=== PATIENT | male | born 1955 | race Caucasian/White ===

== ENCOUNTER → 2021-05-27 | Outpatient (CLI) | payer OTHER ==
--- NOTE | 2021-05-27 08:55 | Diagnostic Imaging Report ---
PROCEDURE: CT abdomen and pelvis without contrast. TECHNIQUE: Multiple contiguous axial images were obtained through the abdomen and pelvis without the use of intravenous contrast. Auto Exposure Controls were utilized during the CT exam to meet ALARA standards for radiation dose reduction. INDICATION: Left groin pain radiating to the mid pelvis. No prior studies are available for comparison. The lung bases are clear. Liver is unremarkable. There are small stones within the gallbladder. No biliary duct dilatation is seen. Pancreas and spleen are unremarkable. No adrenal mass is detected. Right kidney is unremarkable. Left kidney contains a punctate nonobstructing calculus in the lower pole. No ureteral calculi or hydronephrosis is identified. Aorta is calcified but nonaneurysmal. There is normal caliber of the small and large bowel loops. No obstruction is seen. There is diverticulosis of the descending and sigmoid colon but no evidence of acute diverticulitis. There is a fat-containing left inguinal hernia. No defect in the prostate is noted. Bladder is unremarkable. There is no free fluid or fluid collection identified. IMPRESSION: 1. Cholelithiasis. 2. Nonobstructing left-sided nephrolithiasis. No ureteral calculi or hydronephrosis is seen. 3. Uncomplicated diverticulosis. 4. Fat-containing left inguinal hernia. Dictated by: Dictated on workstation # [id number]
== END ==
LOC: RAD 08:15
PROVIDERS: ATTEND Nurse Practitioner
DX: Z01.89 Encounter for other specified special examinations (principal); K80.20 Calculus of gallbladder without cholecystitis without obstruction; N20.0 Calculus of kidney; K57.30 Diverticulosis of large intestine without perforation or abscess without bleeding; K40.90 Unilateral inguinal hernia, without obstruction or gangrene, not specified as recurrent
CPT/HCPCS: 74176

== ENCOUNTER 2021-07-13 11:52 | Outpatient (CLI) | payer OTHER ==
[~2021-07-13] VITALS: Ht 172.7 cm; Wt 81.8 kg
[2021-07-13] MEDS ORDERED: TR1C15 TP (12:57)
[2021-07-13] MEDS ORDERED: SILD100T PO (12:57)
[2021-07-13] MEDS ORDERED: MONT-40 PO (12:57)
[2021-07-13] MEDS ORDERED: FLUT9.9S NS (12:57)
[2021-07-13] MEDS ORDERED: GEMF600T88 PO (12:57)
[2021-07-13] MEDS ORDERED: LOSA50TA63 PO (12:57)
[2021-07-13] MEDS ORDERED: AMLO-251 PO (12:57)
[2021-07-13] MEDS ORDERED: ASPI81TA16 PO (12:57)
[2021-07-13] MEDS ORDERED: KETO120S13 TP (12:57)
[2021-07-13] MEDS ORDERED: FENO145T26 PO (12:57)
[2021-07-13] MEDS ORDERED: NAPR220T66 PO (12:57)
[2021-07-13] MEDS ORDERED: ROSU20TA32 PO (12:57)
[2021-07-13] MEDS ORDERED: CETI10TA49 PO (13:03)
[2021-07-13] MEDS ORDERED: MELA5CAP PO (13:03)
[2021-07-13] MEDS ORDERED: MULT-1106 PO (13:03)
[2021-07-13] MEDS ORDERED: MAGN250T35 PO (13:03)
[2021-07-13] MEDS ORDERED: MV-M1TAB20 PO (13:03)
[2021-07-13] MEDS ORDERED: ASCO500C17 PO (13:03)
[2021-07-13] MEDS ORDERED: VITA-259 PO (13:03)
[2021-07-13] MEDS ORDERED: VITA1CAP PO (13:03)
[2021-07-13] MEDS ORDERED: POTA10TA37 PO (13:03)
[2021-07-13] MEDS ORDERED: ZINC50TA51 PO (13:03)
[2021-07-14] MEDS ORDERED: HYDR-3817 PO (10:43)
== END 2021-07-13 13:05 | disposition home or self-care (01) ==
LOC: PREOP 11:52
PROVIDERS: ATTEND Surgery
DX: Z01.818 Encounter for other preprocedural examination (principal)

== ENCOUNTER 2021-07-14 10:18 | Day surgery (SDC) | payer OTHER ==
[~2021-07-14] VITALS: Ht 172.7 cm; Wt 81.8 kg
[2021-07-14] VITALS (10 sets, daily range): BP systolic 108–139; BP diastolic 73–88
[~2021-07-14 10:18] MED LIST: AMLO-251 PO; ASCO500C17 PO; ASPI81TA16 PO; CETI10TA49 PO; FENO145T26 PO; FLUT9.9S NS; GEMF600T88 PO; KETO120S13 TP; LOSA50TA63 PO; MAGN250T35 PO; MELA5CAP PO; MONT-40 PO; MULT-1106 PO; MV-M1TAB20 PO; NAPR220T66 PO; POTA10TA37 PO; ROSU20TA32 PO; SILD100T PO; TR1C15 TP; VITA-259 PO; VITA1CAP PO; ZINC50TA51 PO
[2021-07-14] MEDS ORDERED: ceFAZolin 2 GM IV Premixed 50 ML IV ONE (10:30)
--- NOTE | 2021-07-14 10:41 | Progress Note-Pre Operative ---
Pre-Operative Progress Note H&P Reviewed The H&P was reviewed, patient examined and no changes noted. Date Seen by Provider: Jul 14, 2021 Time Seen by Provider: 10:30 Date H&P Reviewed: Jul 14, 2021 Time H&P Reviewed: 10:30 Pre-Operative Diagnosis: sx left inguinal hernia and chronic calculous cholecystitis JENNIFER LEE MD Jul 14, 2021 10:41
[2021-07-14] MEDS ORDERED: HYDR-3817 PO (10:43)
--- NOTE | 2021-07-14 10:43 | Discharge Inst-Surgical ---
D/C Lap Instructions-ROSA New, Converted, or Re-Newed RX: RX on Chart Follow Up Appt in 2 weeks Activity as tolerated No driving for 24 hours No driving while on pain medications Incentive Spirometry use every 2 hours while awake Regular Diet Symptoms to Report: Fever over 101 degree F, Nausea/Vomiting Infection Signs and Symptoms to report: Increased redness, Foul odor of wound, Increased drainage Bathing instructions: May shower Operative Area Clean/Dry; Keep incision clean/dry If any problems/questions: Contact your physician or go to Emergency Room JENNIFER LEE MD Jul 14, 2021 10:43
[2021-07-14] MEDS ORDERED: ONDANSETRON 4 MG/2 ML (SDV) Z0FRAN IVP PRN ×2 (10:45→14:45)
[2021-07-14] MEDS ORDERED: morphine INJ 10 MG/ML 1ML (SYR OR VIAL) IVP PRN ×2 (10:45)
[2021-07-14] MEDS ORDERED: oxyCODONE/APAP 5/325MG (PERCOCET 5) TABLET PO PRN (10:45)
[2021-07-14] MEDS ORDERED: ACETAMINOPHEN 325 MG TABLET PO PRN (10:45)
[2021-07-14] MEDS: LACTATED RINGERS 1,000 ML IV PRN ×3 (10:50→13:54)
[2021-07-14] MEDS ORDERED: LIDOCAINE/EPI 2% 1:100,00 (XYLOCAINE) 20 ML VIAL ONE (11:12)
[2021-07-14] MEDS ORDERED: LIDOCAINE PF 2% 5 ML (XYLOCAINE) VIAL ONE (12:36)
[2021-07-14] MEDS ORDERED: ONDANSETRON 4 MG/2 ML (SDV) Z0FRAN ONE (12:36)
[2021-07-14] MEDS ORDERED: GLYCOPYRROLATE 0.2 MG/ML (ROBINUL) 2 ML VIAL ONE (12:36)
[2021-07-14] MEDS ORDERED: NEOSTIGMINE 3 MG/3 ML VIAL ONE (12:36)
[2021-07-14] MEDS ORDERED: MIDAZOLAM 2 MG/2 ML (VERSED) VIAL ONE (12:36)
[2021-07-14] MEDS ORDERED: ROCURONIUM 10 MG/ML 5 ML SYRINGE IV ONE (12:36)
[2021-07-14] MEDS ORDERED: proPOfol 200 MG/20 ML (DIPRIVAN) VIAL IV ONE (12:36)
[2021-07-14] MEDS ORDERED: fentaNYL INJ 100 MCG/2 ML AMP ONE (12:36)
[2021-07-14] MEDS ORDERED: HYDROmorphone 2 MG/ML VIAL (DILAUDID) ONE (13:36)
--- NOTE | 2021-07-14 14:16 | Progress Note-Post Operative ---
Post-Operative Progess Note Surgeon (s)/C S S Representative (s) Surgeon JENNIFER LEE MD C S S Representative: mike pantoja DRAMATIC TEACHER Pre-Operative Diagnosis sx left inguinal hernia and chronic calculous cholecystitis Post-Operative Diagnosis sx indirect and direct ing hernia Procedure & Operative Findings Date of Procedure 07/14/21 Procedure Performed/Findings laparoscopic cholecystectomy and left inguinal hernia repair with mesh. Anesthesia Type get Estimated Blood Loss Estimated blood loss (mL): minimal Specimens/Packing Specimens Removed gallbladder JENNIFER LEE MD Jul 14, 2021 14:16
[2021-07-14] MEDS ORDERED: SEVOFLURANE (ULTANE) 15 ML INHAL SOLN ONE (14:36)
[2021-07-14] MEDS ORDERED: HYDROmorphone 2 MG/ML VIAL (DILAUDID) IV ONE (14:45)
[2021-07-14] MEDS ORDERED: morphine INJ 10 MG/ML 1ML (SYR OR VIAL) IVP ONE (14:45)
[2021-07-14] MEDS ORDERED: morphine INJ 10 MG/ML 1ML (SYR OR VIAL) ONE (14:57)
--- NOTE | 2021-07-14 15:14 | Anesthesia-General Post-Op ---
General Patient Condition Mental Status/LOC: Same as Preop Cardiovascular: Satisfactory Nausea/Vomiting: Absent Respiratory: Satisfactory Pain: Controlled Complications: Absent Post Op Complications Complications None Follow Up Care/Instructions Patient Instructions None needed. Anesthesia/Patient Condition Patient Condition Patient is doing well, no complaints, stable vital signs, no apparent adverse anesthesia problems. RADHA CHUN DO Jul 14, 2021 15:14
--- NOTE | 2021-07-14 18:52 | OPERATIVE REPORT ---
DATE OF SERVICE: 07/14/2021 PREOPERATIVE DIAGNOSES: 1. Symptomatic reducible left inguinal hernia. 2. Symptomatic chronic calculous cholecystitis. POSTOPERATIVE DIAGNOSES: 1. Symptomatic reducible left indirect and direct left inguinal hernia component. 2. Multiple small gallstones. PROCEDURE: Laparoscopic cholecystectomy and left inguinal hernia repair with mesh. SURGEON: Jennifer Lee MD STYLE ADVISOR: Salo Meza APRN ANESTHESIA: General endotracheal. ESTIMATED BLOOD LOSS: Minimal. FINDINGS: Same as postoperative diagnoses. DISPOSITION: The patient tolerated the procedure well. INDICATIONS: The patient is a 65-year-old male who was referred over to us for a left inguinal hernia. He reports that he sneezed 2 months ago and then felt a sharp pain in the left inguinal region and this was followed by a palpable bulge, which was painful to palpation and a CT scan was performed, which did show a fat containing left inguinal hernia. He also reported pain in the right upper abdominal quadrant for the past several years; however, states that this has become more frequent. He also states that the feeling of abdominal bloating and fullness after eating meals. The CT scan also detected gallstones. DESCRIPTION OF PROCEDURE: The patient was brought to the operating room, laid supine on the table. After adequate IV pain and sedative medications and general endotracheal intubation, the abdomen was prepped and draped in standard surgical fashion. A 0.5% Marcaine with epinephrine was used to anesthetize overlying skin left upper abdominal quadrant and transverse skin incision made using 15 blade. An 0 silk suture was applied to the medial aspect incision for retraction and Veress needle inserted with a low opening pressure of 0 mmHg. The abdomen was then insufflated to 15 mmHg pressure. The Veress needle removed and a 5 mm XL trocar placed followed by a 5 mm 45-degree angle laparoscope visualizing the peritoneal cavity. A 4-quadrant abdominal exploration was performed. There were omental adhesions towards the gallbladder as well as a distended gallbladder, no gallbladder wall thickening. There was also a left inguinal hernia identified; however, we could not discern if this was a direct or indirect at this time. We then proceeded to place a supraumbilical 10 mm port after the skin and peritoneal lining were anesthetized using 0.5% Marcaine with epinephrine and a transverse skin incision made using 15 blade. In a similar manner, a right lateral 5 mm port was placed. The patient was then placed in reverse Trendelenburg position as well as plane right side up, left side down. The fundus of the gallbladder was retracted anteriorly and superiorly and the omental adhesions were taken down using blunt dissection as well as electrocautery on hook instrument. The hepatoduodenal ligament was then dissected using blunt dissection as well as electrocautery on hook instrument as well as a [place] dissector. The entire critical view of safety was identified including the triangle of Calot as well as the cystic duct and artery as only two structures going into the gallbladder as well as the cystic plate behind the proximal gallbladder. A timeout was then taken and cystic duct and artery were then clipped proximally and distally and cut with EndoShears and the gallbladder was then dissected off the liver bed using electrocautery on hook instrument with visualization of good hemostasis as well as no leaking ducts of Luschka. The gallbladder was removed through the 10 mm port site using an EndoCatch bag. The patient was then placed in Trendelenburg position and the peritoneal lining was then opened laterally towards the conjoined tendon and inguinal ligament using a Sonicision. We then proceeded with medial dissection until Chicho's ligament was identified. We then proceeded with inferior dissection identifying both indirect as well as a direct inguinal hernia component. These were both dissected off of the cord and its surrounding contents with blunt dissection as well as a Sonicision. Good hemostasis was observed. A medium size 3DMax polypropylene mesh was then placed in the defect and tacked to Chicho's ligament medially with absorbable tacks and to the inguinal ligament laterally. The peritoneal lining was then placed over the mesh and a few absorbable tacks placed to hold this in place with visualization of good hemostasis. The 10 mm port site fascia and peritoneum were then closed under direct visualization using a Mejia-Mary Ann device and 0 Vicryl suture. Abdomen was desufflated and remaining ports removed. All skin incisions were closed using 4-0 Monocryl running subcuticular suture. Wounds were then cleaned and covered with Dermabond. The patient tolerated the procedure well. We will start IV normal pain medication as well as a clear liquid diet. Once he is tolerating clears, has good pain control with oral pain medication and is ambulating well, we will discharge him home where he will be instructed to do no heavy lifting or exertion for the next two weeks. Job ID: [id number] DocumentID: [id number] Dictated Date: 07/14/2021 14:23:25 Mechanic'S Assistant Date: 07/14/2021 18:51:38 Dictated By: JENNIFER LEE MD
== END 2021-07-14 16:17 ==
LOC: SDC 10:18
PROVIDERS: ATTEND Surgery
DX: K40.90 Unilateral inguinal hernia, without obstruction or gangrene, not specified as recurrent (principal); K80.10 Calculus of gallbladder with chronic cholecystitis without obstruction; K66.0 Peritoneal adhesions (postprocedural) (postinfection); Z79.899 Other long term (current) drug therapy
CPT/HCPCS: 87081; 94664

== ENCOUNTER → 2022-06-16 | Outpatient (CLI) | payer OTHER ==
[~2022-06-16] MED LIST changes: +HYDR-3817 PO; +POTA-177 PO; -POTA10TA37 PO
--- NOTE | 2022-06-16 10:03 | Diagnostic Imaging Report ---
PROCEDURE: CT maxillofacial without contrast. TECHNIQUE: Multiple contiguous axial images were obtained through the facial bones without the use of intravenous contrast. Auto Exposure Controls were utilized during the CT exam to meet ALARA standards for radiation dose reduction. INDICATION: Left ear pain. COMPARISON: None. FINDINGS: The mastoid air cells on the left are clear. The left middle ear cavity is unremarkable without evidence of soft tissue mass or fluid. No osseous erosions are seen. Post surgical changes of wall down mastoidectomy are seen on the right. The ossicles on the right demonstrate osseous destruction. A small amount of soft tissue fullness is seen within the right middle ear cavity. No acute fracture is seen. Post surgical changes are seen in the mandible. The bilateral TMJ demonstrate normal alignment. Degenerative changes are present in the bilateral TMJ. The zygomatic arches and pterygoid plates are intact. Post surgical changes are seen in the paranasal sinuses. Mild mucosal thickening is seen throughout the paranasal sinuses. The globes and orbits are symmetric and unremarkable. The included intracranial contents have a normal appearance. IMPRESSION: 1. Unremarkable appearance of the left mastoid air cells and middle ear cavity. No evidence of otomastoiditis. 2. No acute facial fractures. 3. Postsurgical changes in the paranasal sinuses. Mild mucosal thickening is seen throughout the paranasal sinuses. 4. Prior wall down mastoidectomy changes on the right. Additional destruction of the ossicles is noted on the right with small amount of soft tissue fullness in the right middle ear cavity. Findings may represent sequelae of otomastoiditis or cholesteatoma. Recommend correlation with patient history. Dictated by: Dictated on workstation # [id number]
== END ==
LOC: RAD 06-09 10:15
PROVIDERS: ATTEND Nurse Practitioner
DX: Z01.89 Encounter for other specified special examinations (principal); J34.89 Other specified disorders of nose and nasal sinuses; Z98.890 Other specified postprocedural states
CPT/HCPCS: 70486

== ENCOUNTER → 2023-04-06 | Outpatient (CLI) | payer OTHER ==
[~2023-04-06] MED LIST changes: +0.9% SODIUM CHLORIDE PF INJ 10 ML VIAL IV ONE; +LIDOCAINE 1% INJ 10 ML VIAL INJ STA; -ROSU20TA32 PO; +ROSU20TA73 PO
--- NOTE | 2023-04-06 10:14 | Diagnostic Imaging Report ---
INDICATION: Left shoulder pain and possible infected left shoulder. Patient has a left humeral prosthesis. Patient presents for left shoulder attempted aspiration using fluoroscopy. DETAILS OF THE PROCEDURE: The patient was brought to the procedure room and placed on the table in the supine position. The left shoulder was prepped and draped in the usual sterile fashion. A small amount of 1% lidocaine was utilized for local anesthesia. A 20-gauge spinal needle was advanced and placed with its tip at the rotator interval. Attempted aspiration was performed but no fluid could be obtained. Next, approximately 4 cc of sterile saline was injected through the needle. Reattempt at aspiration was performed obtaining approximately 0.5 mL of fluid. This will be sent to the Lab for attempted culture. The needle was withdrawn and hemostasis was obtained. The patient tolerated the procedure well and left the Department in stable condition. A total of 12 seconds of fluoroscopic time was utilized. IMPRESSION: Fluoroscopically assisted left shoulder aspiration, as described. Dictated by: Dictated on workstation # [id number]
== END ==
LOC: RAD 08:42
DX: M25.512 Pain in left shoulder (principal); Z96.612 Presence of left artificial shoulder joint
CPT/HCPCS: 77002; 87070; 87075; 87205